=== PATIENT | male | born 1930 | race Caucasian/White ===

== ENCOUNTER 2018-08-18 21:58 | Observation (INO) | payer MEDICARE, BC ==
[2018-08-19] MEDS ORDERED: Ondansetron ODT 4 MG TAB SL PRN (01:28)
[2018-08-19] MEDS ORDERED: Acetaminophen 325 MG TAB PO PRN (01:28)
[2018-08-19] MEDS ORDERED: Ondansetron PF 4 MG/2 ML Vial IVP PRN (01:28)
[2018-08-19 02:24] VITALS: BMI 32.4
[2018-08-19] MEDS ORDERED: hydrALAZINE 20 MG/ML VIAL SLOW IVP PRN (08:45)
[2018-08-19] MEDS ORDERED: Aspirin 325 mg Enteric Coated Tablet PO SCH (09:00)
[2018-08-19] MEDS ORDERED: DESIPRAMINE HCL PO SCH (09:00)
[2018-08-19] MEDS: Timolol 0.5% Ophth Soln 5 ml Bottle EA EYE SCH ×2 (11:02→20:58)
[2018-08-19] MEDS: Enoxaparin Sodium 40 MG/0.4 ML SYRINGE SC SCH (11:02)
[2018-08-19] MEDS: Brimonidine Tartrate 0.2% Ophth Soln 5 ml Bottle EA EYE SCH ×2 (11:05→20:57)
[2018-08-19] MEDS: Tamsulosin HCl 0.4 MG CAP PO SCH (11:11)
[2018-08-19] MEDS: Ascorbic Acid 500 mg Chewable Tablet PO SCH (11:11)
[2018-08-19] MEDS: Triamterene/Hydrochlorothiazide 37.5 mg/25 mg Tablet PO SCH (11:12)
[2018-08-19] MEDS: Clopidogrel Bisulfate 75 MG TAB PO SCH (11:14)
--- NOTE | 2018-08-19 12:09 | HP ---
PRIMARY CARE PROVIDER: Benedict Mcknight M.D. CHIEF COMPLAINT: Altered mental status. HISTORY OF PRESENT ILLNESS: Mr. Morales is a pleasant 88-year-old gentleman, who was seen at [facility] on 08/19/2018. He is able to provide some history. Collateral history was obtained from his at the bedside and review of electronic medical records. Mr. Morales is currently at [facility], following tra nsfer from [facility] in [place]. He reportedly was working on fixing a commode at home. He was doing it for an extended period of and his asked him to stop working on it. He tried to get up and was reportedly confused. He did not remember that they had gone to [employer] yesterday and bought parts to fix the toilet. He was a lso on the phone with an acquaintance and did not make sense. He was not oriented to place or time. He was oriented to self and knew his birthday. He was taken to the emergency room at [facility]. There, noncontrast CT scan of the brain was unremarkable. He was transferred to [facility] for further management. Patient reports feeling better today. He does not recall the events that happened yesterday. REVIEW OF SYSTEMS: All other systems reviewed and found to be negative. PAST MEDICAL HISTORY: Glaucoma, hypertension, Meniere's disease, peripheral neuropathy, and enlarged prostate. PAST SURGICAL HISTORY: Spine stimulator placement, cervical spine surgery, cholecystectomy, bilatera l eye surgery, and right and left rotator cuff repair. SOCIAL HISTORY: Patient denies tobacco use, alcohol use, or recreational drug use. FAMILY HISTORY: Patient denies any premature history of coronary artery disease in his family. CODE STATUS: I discussed his code status. He is FULL CODE. ALLERGIES: CODEINE, SULFA, TRAMADOL, and VICODIN. CURRENT MEDICATIONS: These include vitamin C 500 mg daily, aspirin 81 mg daily, Combigan eye drops 1 drop to each eye 2 times a day, Plavix 75 mg daily, desipramine 50 mg daily, tamsulosin 0.4 mg daily , travoprost eye drops 1 drop to each eye at bedtime, and triamterene/hydrochlorothiazide 37.5/25 mg daily. PHYSICAL EXAMINATION: GENERAL: Mr. Morales is awake and alert, not in acute distress. VITAL SIGNS: Blood pressure is 124/56, pulse 65, respiratory rate 16, and oxygen saturation 95% on r oom air. He is afebrile. He is obese, with a BMI of 32.5. EYES: No scleral icterus. No conjunctival pallor. ENT: Dry mucosal membranes, no oropharyngeal erythema or exudates. NECK: Supple, nontender. Trachea is midline. RESPIRATORY: Accessory muscles of breathing are not active. Chest wall movements are symmetric bila terally. LUNGS: Clear to auscultation without wheeze, rhonchi, or crepitations. CARDIOVASCULAR: S1 and S2 are heard, regular. Peripheral pulses palpable. No carotid bruit, no per icardial rub. ABDOMEN: Soft, nontender, bowel sounds are heard, no hepatomegaly, no splenomegaly. NEUROLOGIC: Cranial nerves II-XII intact. No focal motor or sensory deficits. Power is 5/5 in all 4 extremities. Cerebellar exam: Unremarkable. Deep tendon reflexes 2+. Plantar reflexes downgoing bilaterally. MUSCULOSKELETAL: Power is 5/5 in all 4 extremities. SKIN: No rashes or subcutaneous nodules. LYMPHATIC: No cervical lymphadenopathy. PSYCHIATRIC: Normal mood, normal affect. The patient is oriented to person, place, month, and year, but not to date. LABORATORY DATA: Mr. Morales's labs and investigations were reviewed. I reviewed his electrocardiogr am, which shows sinus tachycardia, no ST changes to suggest an acute coronary syndrome. I also revie wed his chest x-ray, which does not show any pulmonary infiltrates. Noncontrast CT scan of the brain showed chronic left sphenoid sinus disease and no acute intracranial abnormalities. He has normal s odium, normal potassium, normal blood urea nitrogen, normal creatinine, unremarkable liver profile, n ormal troponin I, normal white count of 9600, normal hemoglobin of 13, and normal platelet count of 2 97,000. Urinalysis was negative for nitrite and leukocyte esterase. BNP is normal at 56. ASSESSMENT AND PLAN: Mr. Morales is a pleasant 88-year-old gentleman, who was seen at [facility] on 08/19/2018. His problem list includes: 1. Acute metabolic encephalopathy: Mr. Morales is presenting with acute metabolic encephalopathy, et iology unknown at this time. He will be admitted to the hospital for further management. Neurology service will be consulted. He cannot have MRI of the brain secondary to spinal stimulator. We will check 2D echocardiogram and carotid Dopplers as part of stroke workup. We will continue his aspirin and Plavix. We will also add statin for now. Further management depending on outcome of the tests. He appears to be clinically improving. 2. Glaucoma: We will continue his eye drops while he is in the hospital. 3. Hypertension: We will resume his home medications, monitor vital signs, and titrate antihyperten sives as needed. 4. Benign prostate hypertrophy: Continue home Flomax. Many thanks for allowing me to participate in your patient's care. Please feel free to contact me wi th any questions or concerns. LEVEL OF RISK: High. LEVEL OF COMPLEXITY: High.
--- NOTE | 2018-08-19 12:34 | ULT ---
BILATERAL CAROTID DUPLEX ULTRASOUND: DATE: 08/19/18 HISTORY: CVA. TIA. TECHNIQUE: Tiwari scale ultrasound with color flow and spectral Doppler imaging of the extracranial carotid artery systems performed. FINDINGS: There is plaque formation on either side. The peak systolic velocity in the right ICA measures 78 cm/second with an end-diastolic velocity of 1 2 cm/second and a systolic ratio of 0.7. The peak systolic velocity in the left ICA measures 69 cm/second with an end-diastolic velocity of 7 cm/second and a systolic ratio of 0.65. Flow in both vertebral arteries remains antegrade. IMPRESSION: No evidence of hemodynamically significant stenosis. POS: [place]
[2018-08-19] MEDS: Sodium Chloride 0.9% 1,000 ML IV SCH (12:51)
--- NOTE | 2018-08-19 19:33 | CON ---
DATE OF CONSULTATION: 08/19/2018 CHIEF COMPLAINT: Altered mental status. HISTORY OF PRESENT ILLNESS: The patient's history was obtained from and two daughters and the p atient also. The patient was doing well until 6:00 p.m. last night at his house. He normally walks with a 4-wheeled walker and he was doing his home project yesterday about trying to fix a commode and he was talking to his friend about the repair last evening and thought he was not making sense and she also remembers going to the door, but he could not tell or remember any subsequent events aft er that, he could not even tell them the year or president, did not know that he had two bathrooms at their home. There is primarily confusion, but no loss of strength. No double vision, loss of consc iousness, seizures, or dizziness. No headache prior to this event and he was taken immediately to [place], [place] and he had a CT scan which showed sphenoid sinusitis, but no acute or ch ronic infarction. No mass effect. He was subsequently transferred to [place] for further neurolo gical care. 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 Chronic back problems, macular degeneration, and glaucoma. PAST SURGICAL HISTORY: He has had surgery for his left leg recently about 3 weeks ago with arteriove nous bypass. He had back surgery several years ago, has a spinal cord implant in the lumbar area for the last 5 years. He has had 3 spine surgeries, rotator cuff surgery more than 15 years ago when he had eye surgeries as well. ALLERGIES: He is allergic to CODEINE, SULFA, VICODIN, TRAMADOL, all of which cause nausea, PLAVIX ca used nosebleeds. CURRENT MEDICATIONS: He takes amlodipine 5 mg per day, aspirin 81 mg per day, Combigan twice daily. He has been off of Plavix for 1 week, Norpramin 50 mg per day, meclizine 25 mg as needed, Multivitam in, Flomax 0.4 mg per day, Travatan eyedrops at bedtime, Maxzide 37.5/25 once daily. FAMILY HISTORY: Positive for CVA in his father who at 92. Mother at 91. She had a hip patricia rgery and from old age. Patient has lost 4 siblings, one brother at 2 years of age, one di ed at 89 from cancer, one brother at 89 from dementia. Sister in her 80s from dementia. T he patient has 2 daughters, 67 and 64 years of age and son who is 59. All are in good health. SOCIAL HISTORY: The patient lives with his . He worked in the [employer] for 4 years and he work ed for [employer] for a number of years. 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 REVIEW OF SYSTEMS: PULMONARY: Negative for shortness of breath or cough. GASTROINTESTINAL: Negative for any nausea or diarrhea. NEUROLOGIC: Positive for confusion. No weakness. MUSCULOSKELETAL: Gait disturbance and difficulty with walking. DERMATOLOGICAL: Normal. ENDOCRINE: Normal. HEMATOLOGIC: Negative for any bleeding or diathesis. LABORATORY DATA: Sodium 142, potassium 3.9, chloride 105, bicarbonate 24, BUN 18, creatinine 1.18, g lucose 118. White count 9.6, hemoglobin 13.0, hematocrit 37, platelets 297. BNP 56. Lactic acid 2. 0, calcium 9.4, bilirubin 0.4. PT 13.6, INR 1.2, PTT 31.3. CT scan of the head report from outside as noted earlier. His carotid doppler study was negative for any hemodynamically significant stenosi s. PHYSICAL EXAMINATION: VITAL SIGNS: Blood pressure 122/55, temperature 98.3, pulse 63, respiratory rate 16. GENERAL APPEARANCE: Well-built, well-nourished gentleman. CHEST: Clear vesicular breathing. CARDIOVASCULAR: S1, S2 heard, no murmurs. Carotids clear. ABDOMEN: Soft, nontender, no organomegaly noted. NEUROLOGICAL: Higher intellectual functions. He knows it is August but thinks it is 2018. He bright s know the hospital, and he is oriented to person and place and is able to give some of his medical h istory. Family states that he is better than yesterday. Cranial nerve examination. Normal pupillar y reaction bilaterally at 2 to 3 mm and no facial asymmetry noted. Normal sensory exam bilaterally o n the face. Normal hearing to finger rub. Normal elevation of palate. Tongue midline. No atrophy noted. Motor examination: Bulk normal, tone normal, strength 5/5 in upper and lower extremities. M uscle groups tested are iliopsoas, hamstrings, quadriceps, ankle dorsiflexion, plantar flexion, delto id, biceps, triceps, wrist extension/flexion, and finger extension and flexion bilaterally. Deep ten don reflexes were 1+ throughout in upper and lower extremities. SENSORY: Normal to touch and proprioception. CEREBELLAR: Normal [id number], heel to swain. Gait, he was walking with the help of the therapis ts using his walker and had slightly short steps while walking. IMPRESSION: Patient is an 88-year-old man with family history of dementia. Since yesterday, he has been somewhat confused according to the family, and was not making any sense. Therefore, they kenneth t him to the hospital. This event was not preceded or followed by any dizziness, loss of consciousne ss, or seizures. Currently, he is improving and closer to baseline. A CT of the head did not show a ny acute ischemia or hemorrhage. We are unfortunately unable to obtain MRI of the brain. Recommende d clinical history and diagnosis is most consistent with possible cerebrovascular accident in this el jose r gentleman with underlying possible dementia. RECOMMENDATIONS: CT angiogram of the head and neck when his creatinine is within normal limits, plea se give aspirin 325 mg per day for now and please complete stroke workup and he can follow up with Dr Kraus as outpatient. Please call Neurology if needed as an inpatient.
[2018-08-19] MEDS ORDERED: Atorvastatin Calcium 40 MG TAB PO SCH (21:00)
[2018-08-19] MEDS ORDERED: Latanoprost 0.005% Ophth Soln 2.5 ml Bottle EA EYE SCH (21:00)
[2018-08-20] MEDS: Sodium Chloride 0.9% 1,000 ML IV SCH (04:43)
[2018-08-20 05:58] LABS: #Basophils 0.1 thou/uL (0.0-0.2); #Eosinphils 0.1 thou/uL (0.0-0.7); #Lymphocytes 3.2 thou/uL (1.20-3.40); #Monocytes 0.7 thou/uL (0.11-0.59); %Basophils 0.8 % (0.0-1.0); %Eosinophils 1.6 % (0.0-10.0); %Lymphocytes 39.1 % (21.0-51.0); %Monocytes 9.2 % (0.0-10.0); %Neutrophils 49.3 % (42.0-75.0); Mean Corpuscular HGB CONC 33.3 g/dL (32.0-36.0); Mean Corpuscular Hemoglobin 32.1 pg (27.0-31.0); Mean Corpuscular Volume 96.3 fL (78.0-98.0); Mean Platelet Volume 8.6 fL (7.4-10.4); Platelet Count 261 thou/uL (130-400); RBC Distribution Width 13.1 % (11.5-14.5); Red Blood Cell (RBC) Count 3.73 mill/uL (4.70-6.10); White Blood Cell (WBC) Count 8.1 thou/uL (4.8-10.8)
[2018-08-20 06:10] LABS: Anion Gap 9 mmol/L (10-20); BUN (Urea Nitrogen) 12 mg/dL (8.4-25.7); Calc. Creatinine Clearance 83 mL/min (70-130); Calcium 9.2 mg/dL (7.8-10.44); Carbon Dioxide 26 mmol/L (23-31); Cardiac Risk 3.5 (Less than 4.5); Chloride 108 mmol/L (98-107); Cholesterol 149 mg/dl (< 200 Desired); Estimated GFR-MDRD 84; Glucose 109 mg/dL (83-110); HDL Cholesterol 43 mg/dL (>60 Neg Risk); LDL Cholesterol, Calculated 94 mg/dL; Potassium 3.7 mmol/L (3.5-5.1); Sodium 139 mmol/L (136-145); Triglycerides 59 mg/dL (Less than 150)
[2018-08-20] MEDS: Timolol 0.5% Ophth Soln 5 ml Bottle EA EYE SCH (09:17)
[2018-08-20] MEDS: Tamsulosin HCl 0.4 MG CAP PO SCH (09:19)
[2018-08-20] MEDS: Triamterene/Hydrochlorothiazide 37.5 mg/25 mg Tablet PO SCH (09:20)
[2018-08-20] MEDS: Enoxaparin Sodium 40 MG/0.4 ML SYRINGE SC SCH (09:20)
[2018-08-20] MEDS: Ascorbic Acid 500 mg Chewable Tablet PO SCH (09:20)
[2018-08-20] MEDS: Brimonidine Tartrate 0.2% Ophth Soln 5 ml Bottle EA EYE SCH (09:21)
[2018-08-20] MEDS: Clopidogrel Bisulfate 75 MG TAB PO SCH (09:21)
[2018-08-20] MEDS ORDERED: ISOVUE-370 76%-LOCM 1 ML ONE (10:58)
--- NOTE | 2018-08-20 11:50 | CT ---
CT ANGIOGRAM OF THE HEAD: DATE: 08/20/2018. COMPARISON: None. HISTORY: Possible CVA, altered mental status, amnesia, evaluate intracranial arterial flow. TECHNIQUE: Axial CT imaging at 5 mm intervals from vertex through the skull base without contrast. Then, axial CT imaging at 1.25 mm intervals from vertex through the skull base with IV contrast using a CT angiog willie protocol. Coronal and sagittal 3D reformatted imaging obtained. FINDINGS: Noncontrast-enhanced head CT demonstrates no intracranial hemorrhage, midline shift, mass effect, or ventricular enlargement. There is partial opacification of the sphenoid sinus and posterior ethmoid air cells n the left. Imaged paranasal sinuses/mastoid air cells otherwise unremarkable. No acute o sseous abnormality is evident. Postcontrast imaging demonstrates patency of the imaged distal vertebral arteries. The basilar artery is patent. There is a hypoplastic left P1 segment versus a origin of the left posterior cerebellar artery. The posterior cerebral arteries appear patent bilaterally. No sacular aneurysm, high-grade stenosi s, or vascular occlusion is seen involving the posterior circulation. The imaged extracranial internal carotid arteries are patent bilaterally. There is tortuosity and at herosclerotic calcification involving the cavernous carotid arteries bilaterally. The A1 segment and distal BRIE branches appear patent bilaterally. The M1 segment and MCA bifurcation appears unremarkable bilaterally. Distal MCA branches appear with in normal limits. No central arterial occlusion, sacular aneurysm, or high-grade arterial stenosis of anterior circulat ion. IMPRESSION: No acute findings noted on CT angiogram of the head. Incidental findings as described above. POS: [place]
[2018-08-20 15:37] VITALS: BP 143/75; TEMP 97.4
--- NOTE | 2018-08-21 00:08 | DIS ---
DATE OF ADMISSION: 08/19/2018 DATE OF DISCHARGE: 08/20/2018 PRIMARY CARE PROVIDER: Benedict Mcknight M.D. DISCHARGE DIAGNOSES: 1. Acute metabolic encephalopathy. 2. 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 3. Possible dementia. CONSULTATIONS DURING THIS HOSPITALIZATION: Neurology, Dr. Marcela Reid. CONDITION OF PATIENT ON THE DAY OF DISCHARGE: Stable. I assessed Mr. Morales on the day of discharge . He denies any chest pain or shortness of breath. Vital signs are stable. S1 and S2 are heard, re gular. Lungs are clear to auscultation bilaterally. Neurologic exam is nonfocal. He is oriented x3 . DISCHARGE MEDICATIONS: Vitamin C 500 mg daily, aspirin 81 mg daily, Combigan eyedrops 1 drop to each eye 2 times a day, Plavix 75 mg daily, desipramine 50 mg daily, Flomax 0.4 mg daily, travoprost 1 dr op to each eye at bedtime, triamterene/hydrochlorothiazide 37.5/25 mg daily, and Lipitor 40 mg at bed time. HOSPITAL COURSE: Mr. Morales is a pleasant 88-year-old gentleman who was admitted to [facility] on 08/19/2018. Please refer to my history and physical note dated 08/19/2018 for phylicia cruz details. The carotid Dopplers on 08/19/2018 did not show any evidence of hemodynamically sign ificant stenosis. The patient was seen by Neurology Service. He also had 2D echocardiogram, which d id not show any obvious PFO, ASD or intracardiac thrombi. He was reportedly off of Plavix for one week prior to the onset of his symptoms. Neurology Service c oncluded that he most likely had cerebrovascular accident, given his presentation. This could not be confirmed with an MRI because patient has a spinal stimulator. He also has been started on statin a nd has been advised to follow up with Neurology Service as outpatient. During this hospitalization, fasting lipid profile showed triglycerides 59, cholesterol 149, LDL chol esterol 94, and HDL cholesterol 43. Creatinine was 0.86 on 08/20/2018. He has white count 8,100, he moglobin 12, and platelet count 261,000. He was also seen by therapy services prior to discharge. Mr. Morales also had CT angiogram of [place] of [place]. He did not have any acute findings on CT angio gram of the head. He had hypoplastic left P1 segment versus a origin of the left posterior cer ebellar artery. He also had tortuosity and atherosclerotic calcification involving the cavernous car otid arteries bilaterally. He had partial opacification of the sphenoid sinus and posterior ethmoid air cells on the left. Many thanks for allowing me to participate in your patient's care. Please feel free to contact me wi th any questions or concerns. DISCHARGE DESTINATION: Home.
== END 2018-08-20 17:12 | disposition home or self-care (01) ==
LOC: ERS 21:58 → 2SE 23:00
PROVIDERS: ADMIT Internal Medicine; ATTEND Internal Medicine
DX: G93.41 Metabolic encephalopathy (principal); I10 Essential (primary) hypertension; Z88.5 Allergy status to narcotic agent; Z88.2 Allergy status to sulfonamides; Z79.899 Other long term (current) drug therapy; R41.82 Altered mental status, unspecified
CPT/HCPCS: 70496; 80048; 80061; 82962; 85025; 93005; 93306; 93880; 96360; 96361 ×2; 96372 ×2; 97116; 97139 ×6; 99285; G0378 ×2; G8978; G8979; G8980; G8987; G8988; G8989; 36415; 36416; J1650